=== PATIENT | female | born 1970 | race Caucasian/White ===

== ENCOUNTER → 2019-05-10 | Outpatient (CLI) | payer OTHER ==
--- NOTE | 2019-05-12 15:16 | Diagnostic Imaging Report ---
Exam: Bone mineral density study. History: Osteopenia. Comparison: December 20, 2016 Discussion: Evaluation of the left hip, and lumbar spine was performed utilizing DEXA Hologic bone densitometer. The study is technically adequate. Left hip total bone mineral density: 0.893gm/cm2, T-score is -0.4, Z-score is 0.1. Left hip femoral neck bone mineral density: 0.776gm/cm2, T-score is -0.7, Z-score is 0.1. Lumbar spine total bone mineral density:0.917gm/cm2, T-score is-1.2, Z-score is -0.4. Impression: 1. Normal bone mineral density of the left hip, fracture risk is not increased. 2. Osteopenia of the lumbar spine, fracture risk is increased The BMD change in the lumbar spine versus baseline is -4.8% and the BMD change versus previous -4.8% . Least significant change (LSC) for bone mineral density as provided by teller is 0.023 g/cm2 for lumbar spine and 0.027 g/cm2 for total hip. 10 -year fracture risk per WHO Fracture Risk Assessment Tool (FRAX) for: Major osteoporotic fracture is 4.0% Hip fracture is 0.1% The above fracture probability is calculated for an untreated patient. Fracture probably may be lower if the patient has received treatment. All treatment decisions require clinical judgment and consideration of individual patient factors, including patient preferences, comorbidities, previous drug use and risk factors not captured in the FRAX model (e.g. frailty, falls, vitamin D deficiency, increased bone turnover, interval significant decline in BMD). The patient's fracture risk is compared to an age-matched control. Medical evaluation for secondary causes of low bone bone mineral density may be appropriate. Correlate clinically for the necessity and timing of the next bone mineral density study. Signed by: Dr. Josiah Mariee M.D. on 05/12/2019 3:13 PM
--- NOTE | 2019-05-14 08:33 | Diagnostic Imaging Report ---
#[id number] - [id number] #BILATERAL DIGITAL SCREENING MAMMOGRAM WITH CAD: 05/10/2019 CLINICAL: Routine screening. Comparison is made to exam dated: 12/20/2016 mammogram - [facility]. Current study contains 5 films. The tissue of both breasts is extremely dense, which lowers the sensitivity of mammography. Current study was also evaluated with a Computer Aided Detection (CAD) system. Benign appearing microcalcifications, left breast. No significant masses, calcifications, or other findings are seen in either breast. IMPRESSION: BENIGN There is no mammographic evidence of malignancy. A 1 year screening mammogram is recommended. The patient will be notified by letter of the results. MAHENDRA JIM M.D. ct/penrad:05/13/2019 16:01:02 [employer] Inspector: Brissa BROWNE(R)(M), [facility] letter sent: Normal Exam Mammogram BI-RADS: 2 Benign
== END ==
LOC: MAMMO 13:24
PROVIDERS: ATTEND Specialist
DX: Z12.31 Encounter for screening mammogram for malignant neoplasm of breast (principal); Z78.0 Asymptomatic menopausal state
CPT/HCPCS: 77067; 77080